=== PATIENT | male | born 1965 | race Caucasian/White ===

== ENCOUNTER 2021-05-09 00:47 | Day surgery (SDC) | payer BC, SELFPAY ==
[2021-04-29 09:44] VITALS: BMI 27.1
--- NOTE | 2021-05-09 08:18 | P.PNAN_ITS ---
Anes - Initial Pre Proc Eval Procedure: Operation Date: 05/09/21 09:30 Proposed Procedures p Screening Colonoscopy - Rakan Dickinson MD Date/Time: 05/09/21 08:18 Surgeon: Rakan Dickinson MD Pre Op Diagnosis: hx of colon polyps, neoplasm screening Patient Data Age: 55 Gender: M Height: 1.73 m Weight: 81 kg Allergies Allergy/AdvReac Type Severity Reaction Status Date / Time No Known Allergies Allergy Mild Verified 05/09/21 08:30 Home Medications Medication Instructions Recorded Confirmed Type No Home Medications 04/08/21 05/09/21 History Patient hx anesthesia problems: none Family hx anesthesia problems: none Results Review: All pre-operative results and documents have been reviewed as part of the pre-operative evaluation. [facility] Past Medical History Medical History Colon polyp, hyperplastic Overweight (BMI 25.0-29.9) Social History Social History Smoking status: Former smoker Tobacco type: cigarettes Alcohol intake: current Drinks per week: 7 Alcohol use details: beer Substance use: never Substance use type: does not use Living arrangements: with family Spiritual care concerns: No Anes - Eval Final PreProcedure Day of Procedure 05/09/21 08:18 Patient weight: overweight Heart: regular rate and rhythm Lungs: clear to auscultation and normal air movement Airway: Mallampati scale class II Neurological: alert and oriented Last oral intake: >/= 8 hours ASA classification: II Emergent: no Anesthetic plan: proceed Anesthesia type and monitoring: general GIVS Results Review: All pre-operative results and documents have been reviewed as part of the pre-operative evaluation. Informed Consent: The patient's anesthetic plan and its attendant risks and benefits were discussed with the patient/family/POA. Questions were solicited and answers provided to the satisfaction of the patient/family/POA.
[2021-05-09 08:31] VITALS: BP 142/89; PULSE 79; RESP 20; TEMP 36.6; O2SAT 99
[2021-05-09] MEDS: LACTATED RINGERS 1,000 ML 150 ML IV CONT (08:38)
--- NOTE | 2021-05-09 08:40 | WPDGICN ---
Assessment and Plan Assessment and plan (1) Colon cancer screening: Code(s): Z12.11 - Encounter for screening for malignant neoplasm of colon Status: Acute Assessment and Plan: Colonoscopy with possible biopsy or polypectomy or cautery or injection of substances. GI Consult Note Consult date/time: 05/09/21 08:40 HPI: Jose Mitchell is a 55 year old male referred for colon cancer screening. He had 3 polyps removed about 3 years ago, 1 of which was a tubular adenoma Review of Systems Review of Systems: All systems reviewed & are unremarkable except as noted in HPI and below PMFSH Past Medical History Medical History Colon polyp, hyperplastic Overweight (BMI 25.0-29.9) Social History Social History Smoking status: Former smoker Tobacco type: cigarettes Alcohol intake: current Drinks per week: 7 Alcohol use details: beer Substance use: never Substance use type: does not use Living arrangements: with family Spiritual care concerns: No Meds Home Medications and Allergies Home Medications Medication Instructions Recorded Confirmed Type No Home Medications 04/08/21 05/09/21 History Allergies Allergy/AdvReac Type Severity Reaction Status Date / Time No Known Allergies Allergy Mild Verified 05/09/21 08:30 Vital Signs Vital Signs - 24 hr 05/09/21 08:31 Temperature 36.6 C Pulse Rate 79 Respiratory Rate 20 Blood Pressure 142/89 H Pulse Oximetry 99 Exam Const: General: alert Orientation/consciousness: patient oriented x3 Resp: Auscultation: clear to auscultation bilaterally Cardio: Rhythm: regular rhythm GI: GI Palp: Yes Soft to palpation and No Tenderness to palpation present (GI) Neuro: General: patient oriented x3
[2021-05-09] MEDS: SIMETHICONE ORAL SUSPENSION 20 MG/0.3 ML 30 ML BOTTLE 0.6 ML IRRIGATION (09:20)
[2021-05-09 09:30] VITALS: BP 98/55; PULSE 67; RESP 21; O2SAT 100
[2021-05-09 09:40] VITALS: BP 108/73; PULSE 64; RESP 16; O2SAT 100
[2021-05-09 09:50] VITALS: BP 116/78; PULSE 62; RESP 22; O2SAT 100
== END 2021-05-09 10:00 | disposition home or self-care (01) ==
PROVIDERS: PCP Family Medicine; Visit Provider Internal Medicine Gastroenterology
PROC: 0DJD8ZZ Inspection of Lower Intestinal Tract, Via Natural or Artificial Opening Endoscopic (ICD-10-PCS; CPT 45378; principal; 2021-05-09 09:30)
DX: Z12.11 Encounter for screening for malignant neoplasm of colon (principal); Z86.010 Personal history of colon polyps; Z87.891 Personal history of nicotine dependence
CPT/HCPCS: 45378; J2704; J7120

== ENCOUNTER 2023-02-26 08:37 | Outpatient (CLI) | payer BC, SELFPAY ==
[2023-03-15 16:56] VITALS: BMI 28.1
--- NOTE | 2023-03-15 16:56 | WPDSLEEPSTUD ---
Sleep Study Date of Study: 02/26/23 Ordering Provider: CHAUNCEY Contreras Interpreting Physician: Marina Lazo, Sleep Study Type: Polysomnogram Height: 1.73 m Weight: 83.915 kg Body Mass Index: 28.1 Neck Circumference (inches): 15 [place]: 6 Reason for Sleep Study The patient had a Type 3 home sleep test done through his dentist on 10/14/2022 that showed an AHI/MARIANNE of 46.1 using AASM criteria (3% desaturations). Loud snoring, teeth grinding Sleep History The patient is a 57-year-old male with hyperlipidemia, colonic polyps and history of tobacco use that had a sleep study ordered by his primary care due to an abnormal sleep study ordered by his dentist. The patient denies awakening from sleep short of breath. He denies awakening at night with heartburn, belching or cough. He frequently snores and is frequently loud enough that others complain. He rarely has trouble sleeping when he has a cold. He denies waking up gasping for air throughout the night. He frequently has breathing problems at night observed by himself or others. He rarely sweats excessively at night. He denies having heart palpitations or irregular heartbeats during the night. He denies falling asleep during the day and while driving. He denies sleep paralysis and cataplexy. He rarely has trouble at school or work due to sleepiness. He rarely experiences vivid dreamlike scenes upon awakening or falling asleep. He denies feeling afraid of going to sleep. He rarely has nightmares and rarely remembers his dreams. He occasionally has thoughts racing through his mind. He denies feeling sad or depressed. He rarely has anxiety. He denies having muscular tension. He denies noticing parts of his body jerk. He denies kicking during the night. He denies having crawling and aching feelings in his legs. He rarely has leg pain during the night. He frequently grinds his teeth during sleep but never awakens with morning jaw pain. He denies being bothered by pain during the day and denies being awakened by pain during the night. He rarely wakes up feeling stiff in the morning. He denies waking up with sore or achy muscles. He rarely wakes up with pain in the neck, spine and other joints. He goes to bed at 9:30 p.m. on weekdays and at 10:30 p.m. on the weekends. It takes him 5-10 minutes to fall asleep. He wakes up 1-2 times throughout the night to urinate and is able to fall back asleep within 10 minutes. He wakes up at 5:00 a.m. on weekdays and at 6:00 a.m. on the weekends. He typically sleeps 7-8 hours per night. He will stay in bed no more than 5 minutes after waking up in the morning. He currently lives with his and will have his daughter on the weekends. He will consume caffeinated beverages within 2 hours of bedtime. He denies engaging in physical exercise before bedtime. He will watch television before falling asleep. He denies taking naps in the afternoon or the evening. He consumes 2-3 caffeinated beverages per day. He consumes 2-3 alcoholic beverages per day. He quit smoking cigarettes over 30 years ago. He denies recreational drug use. [facility] Past Medical History Medical History Colon polyp, hyperplastic Overweight (BMI 25.0-29.9) Social History Social History Smoking status: Former smoker Tobacco type: cigarettes Alcohol intake: current Drinks per week: 7 Alcohol use details: beer Substance use: never Substance use type: does not use Do You Feel Safe in your Home?: No Lack of Transportation: YES Lack of Food: Never True Current Housing: I Have Housing Concerned About Future Housing: No Difficulty Paying Gas/Electric Bills: No Difficulty Paying for Meds: No Currently Unemployed: No Education: Master's Degree or Higher Difficulty w/ Childcare or Family Care: No Living arrangements: wi
== END 2023-02-27 07:08 | disposition home or self-care (01) ==
LOC: ANHCSM 08:38
PROVIDERS: PCP Nurse Practitioner Family; Visit Provider Nurse Practitioner Family
DX: G47.9 Sleep disorder, unspecified (principal)
CPT/HCPCS: 95810